=== PATIENT | male | born 1980 | race Hispanic/Latino ===

== ENCOUNTER → 2024-09-18 | Outpatient (CLI) | payer OTHER ==
[~2024-09-18] MED LIST: GADOTERATE MEGLUMINE 10 MMOL/20 ML VIAL IV ONE
--- NOTE | 2024-09-19 07:41 | HMCIMG ---
EXAMINATION: MRI PELVIS WITH AND WITHOUT CONTRAST CLINICAL HISTORY:Malignant neoplasm of the rectum. COMPARISON:None provided. TECHNIQUE:Multiplanar images were obtained through the pelvis before and after intravenous administration of contrast. Sagittal and coronal reformatted images submitted for interpretation. FINDINGS: Rectum:There is long segment circumferential wall thickening involving the mid and lower third of the rectum, measuring approximately 5.7 cm in length and with a maximum wall thickness of approximately 0.7 cm. Mucosal hyperenhancement is present. The lesion demonstrates focal extension into the mesorectal fat in the lower third of the rectum from the 6 to 8 o???clock position. However, there is no involvement of the mesorectal fascia. Circumferential resection margin (CRM) is clear. No features of bowel obstruction. Distance from anal verge is approximately 6.4 cm Lymph Nodes:No enlarged mesorectal lymph nodes. No pelvic lymphadenopathy. Urinary Bladder:The urinary bladder is incompletely distended with diffuse wall thickening, measuring up to 0.7 cm, concerning for cystitis. Prostate/Seminal Vesicles:The prostate gland and seminal vesicles are normal. Soft Tissues:The visualized soft tissues are unremarkable. Musculoskeletal:No acute osseous abnormality. Degenerative changes in the lower lumbar spine. Other:Colostomy is present in the left lower quadrant. IMPRESSION: Long segment circumferential rectal wall thickening involving the mid and lower third rectum, measuring 5.7 cm in length and 0.7 cm in maximal thickness, with mucosal hyperenhancement and focal extension into mesorectal fat in the lower third rectum from the 6???8 o???clock position. CRM remains clear. No mesorectal or pelvic lymphadenopathy. Diffuse urinary bladder wall thickening concerning for cystitis. Colostomy in the left lower quadrant. Degenerative changes in the lower lumbar spine. /[place]
== END | disposition home or self-care (01) ==
LOC: CANSCHCLI → RAH 11:21
PROVIDERS: ATTEND Surgery
DX: C20 Malignant neoplasm of rectum (principal); K62.89 Other specified diseases of anus and rectum; N32.89 Other specified disorders of bladder; M47.816 Spondylosis without myelopathy or radiculopathy, lumbar region; Z93.3 Colostomy status
CPT/HCPCS: 72197; A9575

== ENCOUNTER → 2024-10-11 | Outpatient (CLI) | payer OTHER ==
[~2024-10-11] MED LIST changes: -GADOTERATE MEGLUMINE 10 MMOL/20 ML VIAL IV ONE; +IOHEXOL-350 75 ML VIAL IV ONE
--- NOTE | 2024-10-11 13:03 | HMCIMG ---
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 Patient was given oral contrast. FINDINGS: The lung bases are clear. There is no pleural or pericardial effusion. The liver has multiple cysts lesion is seen throughout the liver the largest of this is in the right lobe near the diaphragm measuring approximately 3.4 cm. The biliary radicles appears to be not dilated. The common hepatic duct and common bile duct appears normal. The spleen, pancreas, adrenals and kidneys are grossly normal. No nephrolithiasis or hydronephrosis noted. Gallbladder is visualized and is unremarkable. Bowel loops have normal caliber throughout. Small and large bowels are well-opacified with oral contrast. The abdominal aorta is unremarkable. No free fluid or inflammatory process identified. In left lower quadrant colostomy in place with no evidence of any stromal hernia. Cecum, sigmoid and rectum are unremarkable. Small bowel loops have normal caliber throughout. Bladder is partially distended and unremarkable. No bladder or ureteral calculus noted. No inflammatory process, free fluid or fluid collection identified. No skeletal abnormality identified. The prostate and seminal vesicle appears normal. There is small bilateral inguinal hernia with properitoneal fat. IMPRESSION: Multiple hypodense lesions seen scattered throughout the liver which is amenable for CT-GUIDED biopsy for histological sampling. Left-sided colostomy tube in place.
== END | disposition home or self-care (01) ==
LOC: RAH 10:22
PROVIDERS: ATTEND Surgery Surgical Oncology
DX: C78.7 Secondary malignant neoplasm of liver and intrahepatic bile duct (principal); K40.20 Bilateral inguinal hernia, without obstruction or gangrene, not specified as recurrent; K76.89 Other specified diseases of liver; K94.09 Other complications of colostomy; N32.89 Other specified disorders of bladder
CPT/HCPCS: 74178; Q9967